=== PATIENT | female | born 1970 | race Two or more races ===

== ENCOUNTER 2023-05-04 06:44 | Day surgery (SDC) | payer BC ==
[2023-05-04 07:09] LABS: BASOPHILS % (AUTO) 0.7 % (0.0-2.0); EOSINOPHILS # (AUTO) 0.1 K/uL (0.0-0.7); EOSINOPHILS % (AUTO) 1.8 % (0.0-7.0); HEMATOCRIT 41.6 % (31.2-41.9); LYMPHOCYTES # (AUTO) 1.1 K/uL (0.8-4.8); LYMPHOCYTES % (AUTO) 27.5 % (20.5-51.5); MEAN CORPUSCULAR HEMOGLOBIN 29.2 uug (24.7-32.8); MEAN CORPUSCULAR HGB CONC 34 g/dL (32.3-35.6); MEAN CORPUSCULAR VOLUME 86.6 fL (75.5-95.3); MONOCYTES # (AUTO) 0.3 K/uL (0.1-1.30); MONOCYTES % (AUTO) 8.2 % (0.0-11.0); NEUTROPHILS # (AUTO) 2.5 K/uL (1.8-8.9); NEUTROPHILS % (AUTO) 61.8 % (38.5-71.5); PLATELET COUNT (AUTO) 252 K/uL (179-408); RED BLOOD CELL COUNT(AUTO) 4.81 MIL/uL (3.63-4.92); WHITE BLOOD COUNT (AUTO) 4.1 K/uL (3.8-11.8)
[2023-05-04 07:16] LABS: DIFFERENTIAL COMMENT 1
[2023-05-04 07:17] LABS: CALCIUM 9.7 mg/dL (8.5-10.1); CREATININE 0.7 mg/dL (0.6-1.3); POTASSIUM 3.8 mmol/L (3.5-5.1)
[2023-05-04 07:30] LABS: ALBUMIN 4.1 g/dL (3.4-5.0); BILIRUBIN,TOTAL 0.7 mg/dL (0.2-1.0); TOTAL PROTEIN, SERUM 7.6 g/dL (6.4-8.2)
[2023-05-04 08:28] VITALS: TEMP 97.7
[2023-05-04] MEDS ORDERED: PROPOFOL 200 MG/20 ML BOTTLE ONE (08:30)
== END 2023-05-04 09:55 | disposition home or self-care (01) ==
LOC: DS 06:44
PROVIDERS: ATTEND Internal Medicine Gastroenterology
DX: Z12.11 Encounter for screening for malignant neoplasm of colon (principal); K63.89 Other specified diseases of intestine; K64.8 Other hemorrhoids; E66.9 Obesity, unspecified; Z79.899 Other long term (current) drug therapy; Z79.01 Long term (current) use of anticoagulants; Z98.890 Other specified postprocedural states
CPT/HCPCS: 45378; 71045; 80053; 85025; 85730; 36415; 93005; J7120 ×2; A4663; J3490

== ENCOUNTER 2023-07-12 15:01 | Emergency (ER) | payer BC, OTHER ==
[~2023-07-12] VITALS: Ht 152.4 cm; Wt 64.4 kg
[2023-07-12] MEDS ORDERED: ACETAMINOPHEN ES 500 MG TABLET ONE (15:53)
[2023-07-12] MEDS ORDERED: ACETAMINOPHEN ES 500 MG TABLET PO ONE (16:00)
[2023-07-12 16:30] VITALS: BP 130/76; O2SAT 100
== END 2023-07-12 16:31 | disposition home or self-care (01) ==
LOC: ER 15:01
DX: S09.8XXA Other specified injuries of head, initial encounter (principal); W22.01XA Walked into wall, initial encounter; Y93.89 Activity, other specified; Y92.89 Other specified places as the place of occurrence of the external cause; Y99.8 Other external cause status
CPT/HCPCS: A4606; A4663; A9150

== ENCOUNTER 2024-05-08 08:59 | Emergency (ER) | payer BC, OTHER ==
[~2024-05-08] VITALS: Ht 152.4 cm; Wt 66.7 kg
[2024-05-08] MEDS ORDERED: ACET1TAB23 PO (09:21)
[2024-05-08 09:28] VITALS: BP 137/82; O2SAT 99
== END 2024-05-08 09:28 | disposition home or self-care (01) ==
LOC: ER 08:59
DX: B34.9 Viral infection, unspecified (principal)
CPT/HCPCS: A4606; A4663

== ENCOUNTER 2024-07-08 10:11 | Emergency (ER) | payer BC ==
[~2024-07-08] VITALS: Ht 152.4 cm; Wt 65.3 kg
[~2024-07-08 10:11] MED LIST: ACET1TAB23 PO
[2024-07-08] MEDS ORDERED: IBUPROFEN 600 MG TABLET ONE (13:44)
[2024-07-08] MEDS: IBUPROFEN 600 MG TABLET PO ONE (13:47)
[2024-07-08 14:38] VITALS: BP 118/78; O2SAT 99
== END 2024-07-08 14:39 | disposition home or self-care (01) ==
LOC: ER 10:11
DX: B34.9 Viral infection, unspecified (principal); Z20.822 Contact with and (suspected) exposure to COVID-19
CPT/HCPCS: A4606; A4663

== ENCOUNTER 2024-07-17 08:47 | Emergency (ER) | payer BC ==
[~2024-07-17] VITALS: Ht 152.4 cm; Wt 65.3 kg
[2024-07-17] MEDS ORDERED: ALBU18HF2 INH (11:09)
[2024-07-17 11:28] VITALS: BP 135/79; O2SAT 98
== END 2024-07-17 11:30 | disposition home or self-care (01) ==
LOC: ER 08:47
DX: R05.9 Cough, unspecified (principal)
CPT/HCPCS: 71045; A4606; A4663